=== PATIENT | female | born 1955 | race Caucasian/White ===

== ENCOUNTER 2021-09-30 21:02 | Observation (INO) | payer SELFPAY ==
[2021-09-30 21:37] LABS: Blood Gas Oxyhemoglobin 88.4 % (94-97); Blood O2 Saturation 91.2 % (92-98.5)
[2021-09-30 21:42] LABS: Absolute Lymphocytes (CBC) 1.2 K/uL (0.7-4.9); Hematocrit 35.3 % (36.0-45.0); Lymphocytes % 10.1 % (15.3-44.8); MCV 85.4 fL (80-100); RBC Red Blood Cell Count 4.14 M/uL (3.86-4.86)
[2021-09-30] MEDS ORDERED: CEFTRIAXONE 1000 MG/VIAL ONE (21:44)
[2021-09-30] MEDS ORDERED: NA CHLORIDE 0.9% 1,000 ML ONE (21:44)
[2021-09-30 21:49] LABS: Protime INR 1.09
[2021-09-30 22:08] LABS: ALT/SGPT 11 U/L (12-78); AST/SGOT 18 U/L (15-37); Albumin 3.4 g/dL (3.4-5.0); Alkaline Phosphatase 87 U/L (45-117); BUN Blood Urea Nitrogen 12 mg/dL (7-18); Bicarbonate 23 mmol/L (21-32); Bilirubin Direct < 0.1 mg/dL (0-0.2); Bilirubin Total 0.3 mg/dL (0.2-1.0); Glomerular Filtration Rate 71 ml/min (=/>90); Glucose Level 152 mg/dL (74-106); Lipase 57 U/L (73-393); Magnesium 1.9 mg/dL (1.8-2.4); NT PRO-BNP 126 pg/mL (<125); Potassium 4.5 mmol/L (3.5-5.1); Protein, Total 7.6 g/dL (6.4-8.2); Sodium Level 133 mmol/L (136-145)
--- NOTE | 2021-09-30 22:17 | RAD REPORT ---
EXAM DESCRIPTION: CT - Head C Spine Cap Wo Con - 09/30/2021 10:06 pm CLINICAL HISTORY: Trauma, head and neck injury. Chest, abdomen and pelvis pain. FALL COMPARISON: No comparisons TECHNIQUE: CT head without contrast. CT cervical spine without contrast with coronal and sagittal reformatted images. CT chest, abdomen and pelvis with coronal and sagittal reformatted images of the spine. All CT scans are performed using dose optimization technique as appropriate and may include automated exposure control or mA/KV adjustment according to patient size. FINDINGS: CT HEAD WITHOUT CONTRAST: No intracranial hemorrhage, hydrocephalus or extra-axial fluid collection. No acute large vascular te rritory infarct. The paranasal sinuses and mastoids are clear. The calvarium is intact. CT CERVICAL SPINE WITHOUT CONTRAST: No fracture or subluxation. The prevertebral soft tissues are normal in thickness. CT CHEST, ABDOMEN, PELVIS: Thorax: Chest Wall: No abnormal mass Lungs: No acute abnormality. Emphysema. Pleura: No effusions or pneumothorax. Nancy/Mediastinum: No lymphadenopathy. Aorta/Pulmonary Arteries: Unremarkable Heart: Normal size. Abdomen/Pelvis: Liver: No acute abnormality or suspicious lesions. Biliary: No biliary ductal dilatation. Stomach: No significant focal abnormality. Duodenum: No significant focal abnormality. Pancreas: No significant abnormality. Spleen: No significant abnormality. Adrenal: No suspicious lesions. Kidney/ureter: No hydronephrosis. No renal calculi. Retroperitoneum: No retroperitoneal adenopathy. Vascular: No aneurysm. Bowel: No significant focal abnormality. Peritoneum: No ascites or free air. Bladder: Grossly unremarkable. Reproductive: No adnexal masses. Bones: Remote left mid clavicle fracture. Other: n/a IMPRESSION: 1. No acute intracranial abnormality. 2. No acute fracture or traumatic malalignment of the cervical spine 3. No acute findings within the chest, abdomen, or pelvis. 4. The USPTF recommends annual screening for lung cancer with low-dose CT (LDCT) in adults aged 50 to 80 years who have a 20 pack-year smoking history and currently smoke or have quit within the past 15 years.
--- NOTE | 2021-09-30 23:17 | EDPHYS ---
Physician Documentation [facility] Name: Felecia Perez Age: 66 yrs Sex: Female : 1955 Arrival Date: 09/30/2021 Time: 21:03 Bed 19 Private MD: ED Physician Alirio Alonso HPI: 09/30 22:16 This 66 yrs old Female presents to ER via EMS with complaints of Seizure. abby 22:16 The patient presents after having a single isolated seizure, that lasted 30 second(s). abby Character of seizure(s): Loss of consciousness: the patient experienced loss of consciousness, Motor activity: generalized, Incontinence: none, Apnea: the patient did not experience apnea, Circulation: it is unknown whether or not the patient experienced a disturbance in pulse. Seizure onset: just prior to arrival. Context: the seizure(s) was witnessed, by EMS personnel. Seizure Hx: the patient has no previous seizure history. Associated injury: The patient did not suffer any apparent associated injury. Historical: - Allergies: 10/01 01:51 No Known Allergies; ll3 - Social history:: Smoking status: unknown. - Family history:: not pertinent. ROS: 09/30 22:18 Constitutional: Negative for fever, chills, and weight loss, Eyes: Negative for injury, abby pain, redness, and discharge, ENT: Negative for injury, pain, and discharge, Neck: Negative for injury, pain, and swelling, Cardiovascular: Negative for chest pain, palpitations, and edema, Respiratory: Negative for shortness of breath, cough, wheezing, and pleuritic chest pain, Back: Negative for injury and pain, : Negative for injury, bleeding, discharge, and swelling, MS/Extremity: Negative for injury and deformity, Skin: Negative for injury, rash, and discoloration, Psych: Negative for depression, anxiety, suicide ideation, homicidal ideation, and hallucinations, Allergy/Immunology: Negative for hives, rash, and allergies, Endocrine: Negative for neck swelling, polydipsia, polyuria, polyphagia, and marked weight changes. Constitutional: Positive for fatigue. Abdomen/GI: Positive for abdominal pain, of the right upper quadrant, left upper quadrant, right lower quadrant and left lower quadrant. Neuro: Positive for seizure activity. Exam: 22:18 Constitutional: This is a well developed, well nourished patient who is awake, alert, abby and in no acute distress. Head/Face: Normocephalic, atraumatic. Eyes: Pupils equal round and reactive to light, extra-ocular motions intact. Lids and lashes normal. Conjunctiva and sclera are non-icteric and not injected. Cornea within normal limits. Periorbital areas with no swelling, redness, or edema. ENT: Nares patent. No nasal discharge, no septal abnormalities noted. Tympanic membranes are normal and external auditory canals are clear. Oropharynx with no redness, swelling, or masses, exudates, or evidence of obstruction, uvula midline. Mucous membranes moist. Neck: Trachea midline, no thyromegaly or masses palpated, and no cervical lymphadenopathy. Supple, full range of motion without nuchal rigidity, or vertebral point tenderness. No Meningismus. Chest/axilla: Normal chest wall appearance and motion. Nontender with no deformity. No lesions are appreciated. Cardiovascular: Regular rate and rhythm with a normal S1 and S2. No gallops, murmurs, or rubs. Normal PMI, no JVD. No pulse deficits. Respiratory: Lungs have equal breath sounds bilaterally, clear to auscultation and percussion. No rales, rhonchi or wheezes noted. No increased work of breathing, no retractions or nasal flaring. Back: No spinal tenderness. No costovertebral tenderness. Full range of motion. Skin: Warm, dry with normal turgor. Normal color with no rashes, no lesions, and no evidence of cellulitis. MS/ Extremity: Pulses equal, no cyanosis. Neurovascular intact. Full, normal range of motion. Neuro: Awake and alert, GCS 15, oriented to person, place, time, and situation. Cranial nerves II-XII grossly intact. Motor strength 5/5 in all extremities. Sensory grossly intact. Cerebellar exam normal. Normal gait. Psych: Awake, alert, with orientation to person, place and time. Behavior, mood, and affect are within normal limits. 22:18 Abdomen/GI: Inspection: abdomen appears normal, Bowel sounds: normal, Palpation: mild abdominal tenderness, in all quadrants, Liver: no appreciated palpable abnormalities, Hernia: not appreciated. 23:14 ECG was reviewed by the Attending Physician. [facility] Vital Signs: 21:03 BP 109 / 72; Pulse 105; Resp 18; Temp 98.1(A); Pulse Ox 100% on 4 lpm NC; Weight 45.36 tw5 kg; 21:30 BP 158 / 85; Pulse 92; Resp 22; Pulse Ox 95% on R/A; ll3 23:02 BP 144 / 87; Pulse 92; Resp 15; Pulse Ox 95% on R/A; ll3 10/01 00:12 BP 136 / 84; Pulse 92; Resp 18; Pulse Ox 96% on R/A; ll3 01:57 BP 141 / 87; Pulse 88; Resp 20; Pulse Ox 97% on R/A; ll3 09/30 21:03 87 % RA tw5 Ashley Coma Score: 22:00 Eye Response: spontaneous(4). Verbal Response: oriented(5). Motor Response: obeys ll3 commands(6). Total: 15. MDM: 21:20 Patient medically screened. abby 22:23 Differential diagnosis: cerebral vascular accident, drug overdose, cardiac arrhythmia, abby seizure, TIA. Differential diagnosis: bowel obstruction, Cholelithiasis, diverticulitis, gastritis, gastroesophageal reflux disease, Irritable bowel syndrome, Mesenteric ischemia or infarction, non-specific abd pain, pancreatitis, Peptic Ulcer Disease, Pyelonephritis, Ureterolithiasis, urinary tract infection. Data reviewed: vital signs, nurses notes, lab test result(s), CBC, electrolytes, hepatic panel, urinalysis, radiologic studies, CT scan, plain films. Data interpreted: hall monitor: rate is 105 beats/min, rhythm is regular, Pulse oximetry: on room air is 100 %. Counseling: I had a detailed discussion with the patient and/or guardian regarding: the historical points, exam findings, and any diagnostic results supporting the discharge/admit diagnosis, lab results, radiology results, the need for further work-up and treatment in the hospital. 09/30 21:26 Order name: Basic Metabolic Panel; Complete Time: 23:10 [facility] 09/30 21:26 Order name: CBC with Diff; Complete Time: 23:10 [facility] 09/30 21: Order name: LFT's; Complete Time: 23:10 [facility] 09/30 21:26 Order name: Magnesium; Complete Time: 23:10 [facility] 09/30 21:26 Order name: NT PRO-BNP; Complete Time: 23:10 [facility] 09/30 21:26 Order name: PT-INR; Complete Time: 23:10 [facility] 09/30 21:26 Order name: Troponin HS; Complete Time: 23:10 [facility] 09/30 21:26 Order name: Lipase; Complete Time: 23:10 [facility] 09/30 21:26 Order name: Lactate; Complete Time: 23:28 [facility] 09/30 21:26 Order name: Procalcitonin; Complete Time: 23:10 [facility] 09/30 21:26 Order name: Blood Culture Adult (2) [facility] 09/30 21:26 Order name: Acetaminophen; Complete Time: 23:10 [facility] 09/30 21:26 Order name: ETOH Level; Complete Time: 23:10 [facility] 09/30 21:26 Order name: Ptt, Activated; Complete Time: 23:10 [facility] 09/30 21:26 Order name: XRAY Chest (1 view) 09/30 21:26 Order name: EKG; Complete Time: 21:27 [facility] 09/30 21:26 Order name: Cardiac monitoring; Complete Time: 21:29 [facility] 09/30 21:26 Order name: EKG - Nurse/Tech; Complete Time: 22:59 [facility] 09/30 21:26 Order name: IV Saline Lock; Complete Time: 22:59 [facility] 09/30 21:26 Order name: Labs collected and sent; Complete Time: 22:59 [facility] 09/30 21:26 Order name: CT Traumagram (Head C Spine CAP wo con); Complete Time: 23:10 [facility] 09/30 21:26 Order name: Salicylate; Complete Time: 23:10 [facility] 09/30 21:26 Order name: Urine Drug Screen; Complete Time: 02:19 [facility] 09/30 21:26 Order name: ABG; Complete Time: 23:10 [facility] 09/30 23:42 Order name: SARS-COV-2 RT PCR (Document "Date of Onset" if Symptomatic); Complete Time: ll3 02:19 10/01 00:40 Order name: Urine Dipstick-Ancillary; Complete Time: 02:19 EDAZ 10/01 00:41 Order name: Urine Culture [facility] 10/01 00:41 Order name: Urine Microscopic Only; Complete Time: 02:19 [facility] 09/30 21:26 Order name: O2 Per Protocol; Complete Time: 21:29 [facility] 09/30 21:26 Order name: O2 Sat Monitoring; Complete Time: :29 [facility] 09/30 21:26 Order name: Suicide Screening ([place]); Complete Time: 00:47 abby 07 21:26 Order name: Urine Dipstick-Ancillary (obtain specimen); Complete Time: 00:47 [facility] EC:14 Rate is 89 beats/min. Rhythm is regular. QRS [place] is Normal. MO interval is normal. QRS abby interval is normal. QT interval is normal. No Q waves. T waves are Normal. No ST changes noted. Clinical impression: NSR w/ Non-specific ST/T Changes and No evidence of ischemia. Interpreted by me. Reviewed by me. Administered Medications: 22:15 Drug: NS 0.9% 1000 ml Route: IV; Rate: 1 bolus; Site: right antecubital; 3 10/01 02:49 Follow up: Response: No adverse reaction; IV Status: Infusion continued upon admission; 3 IV Intake: 500ml 09/30 22:59 Drug: Rocephin (cefTRIAXone) 1 grams Route: IV; Rate: per protocol; Site: right [facility] antecubital; 10/01 00:47 Follow up: Response: No adverse reaction; IV Status: Completed infusion; IV Intake: [id number] Disposition Summary: 09/30/21 23:16 Hospitalization Ordered Hospitalization Status: Observation abby Provider: Ashanti Galvan cha Location: Telemetry/MedSurg (observation) abby Condition: Fair abby Problem: new abby Symptoms: have improved abby Bed/Room Type: Standard abby Room Assignment: 412(10/01/21 01:15) mw Diagnosis - Epileptic seizures related to external causes abby - Weakness abby - Abdominal pain, Generalized abby - Apnea, not elsewhere classified abby - UTI/ Urinary tract infection, site not specified abby Forms: - Medication Reconciliation Form abby - SBAR form abby Signatures: Dispatcher [employer] EDMS Alla oCnnors RN RN Alirio Joyce MD MD cha Loubet, Lynsea, RN RN ll3 Camelia Chan PA PA sb3 Corrections: (The following items were deleted from the chart) 01:15 09/30 23:16 abby mw
--- NOTE | 2021-09-30 23:17 | ER ---
Nurse's Notes [facility] Name: Felecia Perez Age: 66 yrs Sex: Female : 1955 Arrival Date: 09/30/2021 Time: 21:03 Bed 19 Private MD: Diagnosis: Epileptic seizures related to external causes;Weakness;Abdominal pain, Generalized;Apnea, not elsewhere classified;UTI/ Urinary tract infection, site not specified Presentation: 09/30 21:03 Chief complaint: EMS states: "She has been complaining of a belly ache for two days. tw5 Her mother gave her one of her tramadol then mother reports that she started acting weird. Another family member came over and saw that she was seizing and said to call the EMS. She had one witnessed seizure in the EMS that lasted about a min. 5 mg of versed was given. She is not post ictal. We have not had the chance to get any information from her. ". 21:03 Method Of Arrival: EMS: [facility] tw5 21:05 Onset of symptoms is unknown. tw5 21:05 Acuity: FAVIOLA 2 tw5 10/01 01:51 Coronavirus screen: At this time, the client does not indicate any symptoms associated ll3 with coronavirus-19. Ebola Screen: No symptoms or risks identified at this time. Initial Sepsis Screen: Does the patient meet any 2 criteria? No. Patient's initial sepsis screen is negative. Does the patient have a suspected source of infection? No. Patient's initial sepsis screen is negative. Risk Assessment: Do you want to hurt yourself or someone else? Patient reports no desire to harm self or others. Historical: - Allergies: 01:51 No Known Allergies; ll3 - Social history:: Smoking status: unknown. - Family history:: not pertinent. Screenin:45 Abuse screen: Denies threats or abuse. Nutritional screening: No deficits noted. ll3 Tuberculosis screening: No symptoms or risk factors identified. Fall Risk No fall in past 12 months (0 pts). No secondary diagnosis (0 pts). IV access (20 points). Ambulatory Aid- None/Bed Rest/Nurse Assist (0 pts). Gait- Weak (10 pts.). Mental Status- Oriented to own ability (0 pts). Total Manuel Fall Scale indicates Low Risk Score (25-44 pts). Fall prevention measures have been instituted. Side Rails Up X 2 Placed close to Nursing Station Family Present and informed to notify staff if they need to leave bedside As available Patient and Family Educated on Fall Prevention Program and strategies. Assessment: 09/30 21:30 General: Appears uncomfortable, Behavior is cooperative. Pain: Complains of pain in ll3 left lower quadrant and right lower quadrant and left upper quadrant and right upper quadrant. Neuro: Level of Consciousness is confused. Respiratory: Respiratory effort is even, unlabored, Respiratory pattern is regular, symmetrical. Derm: Skin is pink, warm \\T\\ dry. 23:03 Reassessment: No changes from previously documented assessment. Patient and/or family ll3 updated on plan of care and expected duration. Pain level reassessed. Patient is alert, oriented x 3, equal unlabored respirations, skin warm/dry/pink. 10/01 00:12 Reassessment: No changes from previously documented assessment. Patient and/or family ll3 updated on plan of care and expected duration. Pain level reassessed. Patient is alert, oriented x 3, equal unlabored respirations, skin warm/dry/pink. 01:57 Reassessment: No changes from previously documented assessment. Patient and/or family ll3 updated on plan of care and expected duration. Pain level reassessed. Patient is alert, oriented x 3, equal unlabored respirations, skin warm/dry/pink. Vital Signs: 09/30 21:03 BP 109 / 72; Pulse 105; Resp 18; Temp 98.1(A); Pulse Ox 100% on 4 lpm NC; Weight 45.36 tw5 kg; 21:30 BP 158 / 85; Pulse 92; Resp 22; Pulse Ox 95% on R/A; ll3 23:02 BP 144 / 87; Pulse 92; Resp 15; Pulse Ox 95% on R/A; ll3 0703 00:12 BP 136 / 84; Pulse 92; Resp 18; Pulse Ox 96% on R/A; ll3 01:57 BP 141 / 87; Pulse 88; Resp 20; Pulse Ox 97% on R/A; ll3 09/30 21:03 87 % RA tw5 Ashley Coma Score: 22:00 Eye Response: spontaneous(4). Verbal Response: oriented(5). Motor Response: obeys ll3 commands(6). Total: 15. ED Course: 21:03 Patient arrived in ED. tw5 21:05 Triage completed. tw5 21:15 Arm band placed on Patient placed in an exam room, on a stretcher, on pulse oximetry. ll3 21:18 Dianne Barksdale RN is Primary Nurse. ll3 21:19 Patient has correct armband on for positive identification. Placed in gown. Bed in low mh5 position. Call light in reach. Side rails up X2. Seizure precautions initiated. Warm blanket given. campus monitor on. Pulse ox on. NIBP on. 21:20 Alirio Alonso MD is Attending Physician. [facility] 21:22 Initial lab(s) drawn, by me, sent to lab. Maintain EMS IV. Dressing intact. Good blood lp1 return noted. Site clean \\T\\ dry. Gauge \\T\\ site: 20g to R AC. 22:09 CT Traumagram (Head C Spine CAP wo con) In Process Unspecified. EDMS 22:23 XRAY Chest (1 view) In Process Unspecified. EDMS 23:15 Ashanti Galvan MD is Hospitalizing Provider. [facility] 10/01 01:51 No provider procedures requiring assistance completed. Patient admitted, IV remains in ll3 place. Administered Medications: 09/30 22:15 Drug: NS 0.9% 1000 ml Route: IV; Rate: 1 bolus; Site: right antecubital; ll3 10/01 02:49 Follow up: Response: No adverse reaction; IV Status: Infusion continued upon admission; ll3 IV Intake: 500ml 09/30 22:59 Drug: Rocephin (cefTRIAXone) 1 grams Route: IV; Rate: per protocol; Site: right ll3 antecubital; 10/01 00:47 Follow up: Response: No adverse reaction; IV Status: Completed infusion; IV Intake: [id number] Medication: 01:55 VIS not applicable for this client. ll3 Intake: 00:47 IV: 10ml; Total: 10ml. ll3 02:49 IV: 500ml; Total: 510ml. ll3 Outcome: 09/30 23:16 Decision to Hospitalize by Provider. [facility] 10/01 01:56 Admitted to Tele accompanied by nurse, via stretcher, room 412, with chart, Report ll3 called to STEFANIE Carey 01:57 Condition: stable ll3 01:57 Instructed on the need for admit, Demonstrated understanding of instructions. 02:40 Patient left the ED. tw5 Signatures: Dispatcher [employer] Alirio Alfaro MD MD cha Pena, Laura, RN RN lp1 Edilia Yao [facility] Ying Guardado tw5 Dianne Barksdale RN RN ll3
--- NOTE | 2021-10-01 00:30 | P.HP ---
Certification for Inpatient Patient admitted to: Observation With expected LOS: <2 Midnights Patient will require the following post-hospital care: None Practitioner: I am a practitioner with admitting privileges, knowledge of patient current condition, hospital course, and medical plan of care. Services: Services provided to patient in accordance with Admission requirements found in Title 42 Section 412.3 of the Code of Federal Regulations <Camelia Chan - Last Filed: 10/01/21 00:32> Patient History Date of Service: 10/01/21 Reason for admission: Seizure, Abdominal Pain History of Present Illness: Patient is a 66 y/o F who presented to the ED via EMS after witnessed seizure. Family states that she has been having abdominal pain for few days, took a tramadol, then started acting strangely and had a seizure. EMS reports witnessing a 1 minute seizure in which they administered 5 mg of Versed. EMS states that she also had an apneic episode. Patient was not postictal. Patient has no past medical history and denies any previous seizures. Labs only significant for sodium [address] traumagram negative. Patient reports she has been having abdominal pain on and off for 2 years. She states that she does not see a doctor or dentist for regular care and does not take any medications daily. She was given 1 L of fluid and 1 g of Rocephin in the ED. Upon my assessment, patient states she is feeling better. She does not remember what happened today. ED provider wishes to admit patient for observation Home medications list reviewed: Yes (NA) - Past Medical/Surgical History Diabetic: No Past Medical History: Patient denies medical history -: Psychosocial/ Personal History: Patient lives at home and takes care of her parents. She has 1 daughter. - Social History Smoking Status: Current every day smoker Alcohol use: No CD- Drugs: No Caffeine use: Yes Place of Residence: Home <Elinor Chania - Last Filed: 10/01/21 00:32> Date of Service: 10/01/21 - Family History Father -: Diabetes <Ashanti Galvan - Last Filed: 10/01/21 15:22> Allergies No Known Allergies Allergy (Unverified 05/03/12 20:04) Review of Systems General: Weakness Gastrointestinal: Abdominal Pain Neurological: Seizures <Camelia Chan - Last Filed: 10/01/21 00:32> Physical Examination - Physical Exam General: Alert, In no apparent distress, Oriented x3 HEENT: Atraumatic, PERRLA, EOMI, Sclerae nonicteric Neck: Supple, 2+ carotid pulse no bruit, No LAD, Without JVD or thyroid abnormality Respiratory: Clear to auscultation bilaterally, Normal air movement Cardiovascular: Regular rate/rhythm, Normal S1 S2 Gastrointestinal: Normal bowel sounds, Soft and benign, No tenderness Musculoskeletal: No tenderness Integumentary: No rashes Neurological: Normal speech, Normal strength at 5/5 x4 extr, Normal tone, Normal affect - Studies Laboratory Data (last 24 hrs) 09/30/21 21:15: PT 12.0, INR 1.09, APTT 29.2 09/30/21 21:15: WBC 11.6 H, Hgb 11.6 L, Hct 35.3 L, Plt Count 330 09/30/21 21:15: Sodium 133 L, Potassium 4.5, BUN 12, Creatinine 0.90, Glucose 152 H, Magnesium 1.9, Total Bilirubin 0.3, AST 18, ALT 11 L, Alkaline Phosphatase 87, Lipase 57 L <Camelia Chan - Last Filed: 10/01/21 00:32> - Studies Laboratory Data (last 24 hrs) 09/30/21 21:15: PT 12.0, INR 1.09, APTT 29.2 09/30/21 21:15: WBC 11.6 H, Hgb 11.6 L, Hct 35.3 L, Plt Count 330 09/30/21 21:15: Sodium 133 L, Potassium 4.5, BUN 12, Creatinine 0.90, Glucose 152 H, Magnesium 1.9, Total Bilirubin 0.3, AST 18, ALT 11 L, Alkaline Phosphatase 87, Lipase 57 L Microbiology Data (last 24 hrs): 09/30/21 22:42 Blood - Blood Anaerobic Blood Culture - Final <Ashanti Galvan - Last Filed: 10/01/21 15:22> Assessment and Plan - Problems (Diagnosis) (1) Seizure Status: Acute (2) Abdominal pain Status: Acute Qualifiers: Abdominal location: generalized Qualified Code(s): R10.84 - Generalized abdominal pain (3) Anemia Status: Chronic Qualifiers: Anemia type: unspecified type Qualified Code(s): D64.9 - Anemia, unspecified (4) Leukocytosis Status: Acute Qualifiers: Leukocytosis type: unspecified Qualified Code(s): D72.829 - Elevated white blood cell count, unspecified - Plan -Seizure precautions in place. Monitor on telemetry -Continue IV fluids as patient reports eating/drinking less the past few days -Consider MRI/EEG if any other neurologic symptoms -No acute lab abnormalities. Will repeat in AM -Additionally ordered LDH, iron studies, CPK, TSH, lipid, renal panel, abdominal US, B12, UDS -Recommended outpatient colonoscopy/endoscopy. Patient denies melena. -Lovenox for VTE ppx -Full code Discharge Plan: Home Plan to discharge in: 24 Hours - Advance Directives Does patient have a Living Will: No Does patient have a Durable POA for Healthcare: No - Code Status/Comfort Care Code Status Assessed: Yes (Full) Critical Care: No Time Spent Managing Pts Care (In Minutes): 50 <Camelia Chan - Last Filed: 10/01/21 00:32> Date of Service: 10/01/21 Patient is clinically doing well. Abdominal pain has improved. Patient will be discharged on appetite stimulant, antiemetics, PPI, and antibiotic therapy. I did inform them of a polyp on the gallbladder and they need to follow-up with general surgery. They also need to follow-up with neurology for continued evaluation of seizures. At this time, patient is stable for discharge home. <Ashanti Galvan - Last Filed: 10/01/21 15:22> <Camelia Chan - Last Filed: 10/01/21 00:32> Diet: Regular Activity: Fall precautions <Ashanti Galvan - Last Filed: 10/01/21 15:22> Home Medications: Levetiracetam [Keppra] 500 mg PO BID #60 tablet 10/01/21 Levofloxacin [Levaquin] 500 mg PO DAILY #7 tablet 10/01/21 Omeprazole Magnesium [Prilosec Otc] 20 mg PO DAILY #30 tablet. 10/01/21 Ondansetron [Zofran] 4 mg PO Q6H PRN #30 tab 10/01/21 metroNIDAZOLE [Flagyl] 500 mg PO Q8H #21 tablet 10/01/21 predniSONE [Prednisone*] 20 mg PO DAILY #7 tab 10/01/21
[2021-10-01 00:40] LABS: Urine Blood Trace-intact (Negative); Urine Glucose Negative (Negative); Urine Protein 2+ (Negative)
[2021-10-01 01:13] LABS: Barbiturates NEGATIVE (NEGATIVE); Benzodiazepines POSITIVE (NEGATIVE); Cocaine NEGATIVE (NEGATIVE); METHAMPHETAM NEGATIVE (NEGATIVE); Methadone NEGATIVE (NEGATIVE); Opiates NEGATIVE (NEGATIVE); Phencyclidine NEGATIVE (NEGATIVE); THC Cannibis NEGATIVE (NEGATIVE)
[2021-10-01] MEDS ORDERED: ACETAMINOPHEN 500 MG TAB PO PRN (01:26)
[2021-10-01 01:45] LABS: Urine Amorphous Sediment 2+ /HPF (NONE SEEN); Urine Bacteria LOADED /HPF (<20); Urine Coarse Granular Casts 0-5 /LPF (NONE SEEN); Urine Mucus 3+ /HPF (NONE SEEN)
[2021-10-01 02:52] VITALS: O2SAT 97
[2021-10-01] MEDS: NA CHLORIDE 0.9% 1,000 ML IV SCH ×2 (03:41→11:06)
[2021-10-01] MEDS: ONDANSETRON 4 MG/2 ML VIAL IV PRN ×2 (03:42→11:01)
[2021-10-01 04:49] LABS: Absolute Lymphocytes (CBC) 1.7 K/uL (0.7-4.9); Hematocrit 32.5 % (36.0-45.0); Lymphocytes % 14.8 % (15.3-44.8); MCV 85.5 fL (80-100); MPV 7.3 fL (7.6-11.3)
[2021-10-01 05:33] LABS: Albumin 3.1 g/dL (3.4-5.0); Magnesium 1.9 mg/dL (1.8-2.4); Potassium 3.5 mmol/L (3.5-5.1); Thyroid Stimulating Hormone 1.63 uIU/mL (0.360-3.740)
[2021-10-01 07:19] VITALS: BMI 18.3
--- NOTE | 2021-10-01 08:24 | RAD REPORT ---
EXAM DESCRIPTION: US - Abdomen Exam Complete - 10/01/2021 7:30 am CLINICAL HISTORY: abdominal pain COMPARISON: No comparisons FINDINGS: Gallbladder size is normal. A 5 millimeter nonshadowing echogenic focus midportion of the gallbladder is believed be a polyp rather than nonshadowing gallstone. No mobile gallstones, wall thi ckening or pericholecystic fluid. Common bile duct is normal with no common duct stone identified. Liver and spleen are normal size. No focal splenic abnormality. Doppler evaluation shows no portal ve in abnormality. In the inferior left lobe of the liver there is a 2.1 centimeter hyperechoic focus wi th dense posterior acoustic shadowing. This appears to be within liver parenchyma rather than adjacen t to the liver. Dense acoustic shadowing is usually due to calcification. Calcified mass or cyst woul d be possible. Aggressive process is unlikely. Long-term significance is doubtful. Follow-up CT imagi ng could be used for further characterization. No pancreatic abnormality identifiable. Fullness of the right renal pelvis is present without calyx dilatation. This may be normal variant fo r the patient. No left-sided hydro. Aorta and IVC show no significant finding. No ascites or bulky lymphadenopathy. IMPRESSION: Small 5 mm gallbladder polyp with no gallstones, sludge or acute gallbladder or biliary tree process. A 2 centimeter echogenic mass in the left lobe of the liver may be a calcified mass or cyst. Long-ter m significance is doubtful but follow-up CT imaging with and without contrast would be recommended.
[2021-10-01] MEDS ORDERED: CEFTRIAXONE 1,000 MG in NA CHLORIDE 0.9% 50 ML IVPB SCH (09:00)
[2021-10-01] MEDS ORDERED: POTASSIUM CL SA 10 MEQ TAB PO ONE (09:00)
[2021-10-01] MEDS ORDERED: ENOXAPARIN 40 MG/0.4 ML SQ SCH (09:00)
[2021-10-01 13:28] VITALS: BP 133/81; TEMP 98.3
--- NOTE | 2021-10-03 08:02 | EKG ---
Test Date: 2021-09-30 Test Time: 22:51:28 [employer]: RAYMOND MEASUREMENT RESULTS: Intervals: Rate: 89 CA: 156 QRSD: 84 QT: 360 QTc: 438 [place]: P: 79 CA: 156 QRS: 90 T: 77 INTERPRETIVE STATEMENTS: Normal sinus rhythm Rightward axis Borderline ECG No previous ECG available for comparison Electronically Signed On 10-03-21 07:56:00 CDT by Gabe Garces
--- NOTE | 2021-10-03 15:38 | RAD REPORT ---
EXAM DESCRIPTION: RAD - Chest Single View - 09/30/2021 10:22 pm CLINICAL HISTORY: COUGH Chest pain. COMPARISON: No comparisons FINDINGS: Portable technique limits examination quality. The lungs are emphysematous but grossly clear. The heart is normal in size. No displaced fractures. IMPRESSION: COPD.
== END 2021-10-01 14:04 | disposition home or self-care (01) ==
LOC: ER 21:02 → ERHOLD 10-01 00:18 → 4TH 10-01 01:20
PROVIDERS: ADMIT Hospitalist; ATTEND Hospitalist
DX: R56.9 Unspecified convulsions (principal); R10.84 Generalized abdominal pain; D64.9 Anemia, unspecified; N39.0 Urinary tract infection, site not specified; R06.81 Apnea, not elsewhere classified; F17.200 Nicotine dependence, unspecified, uncomplicated; Z20.822 Contact with and (suspected) exposure to COVID-19; Z83.3 Family history of diabetes mellitus
CPT/HCPCS: 36415; 70450; 71045; 71250; 72125; 76700; 80048; 80061; 80069; 80076; 80307; 80320; 80329; 81003; 81015; 82550; 82607; 82805; 83540; 83605; 83615; 83690; 83735; 83880; 84145; 84443; 84466; 84484; 85025; 85610; 85730; 87040; 87077; 87086; 87088; 87186; 93005; 96361; 96365; 96366; 99285; G0378; J1650; J2405; J7030; U0003

== ENCOUNTER 2023-05-29 21:05 | Inpatient (IN) | payer OTHER ==
[2023-05-29] MEDS ORDERED: ACETAMINOPHEN 650MG/RECT SUPP PR PRN (21:33)
[2023-05-29] MEDS ORDERED: BISACODYL 10 MG RECTAL SUPP PR PRN (21:33)
[2023-05-29] MEDS ORDERED: ONDANSETRON 4 MG/2 ML VIAL IV PRN (21:33)
[2023-05-29] MEDS ORDERED: MORPHINE 2 MG/ML SYR IV PRN (21:46)
[2023-05-29] MEDS ORDERED: LORazepam 2 MG/ML VIAL IV PRN (21:46)
[2023-05-29] MEDS: MORPHINE 2 MG/ML SYR IV SCH (22:45)
[2023-05-29] MEDS: SCOPOLAMINE HYDROBROMIDE PATCH TD ONE (22:45)
[2023-05-29] MEDS ORDERED: LORazepam 2 MG/ML VIAL ONE ×2 (22:50→23:43)
[2023-05-29] MEDS: LORazepam 2 MG/ML VIAL IV SCH (23:02)
[2023-05-30 01:39] VITALS: BMI 26.5
== END 2023-05-30 02:45 | disposition expired | DRG 951 ==
LOC: 2ND 21:05
PROVIDERS: ADMIT Internal Medicine Hematology & Oncology; ATTEND Internal Medicine Hematology & Oncology
DX: Z51.5 Encounter for palliative care (principal)
CPT/HCPCS: J2270